=== PATIENT | female | born 1930 | race Caucasian/White ===

== ENCOUNTER 2016-07-03 09:06 | Emergency (ER) | payer MEDICARE, OTHER ==
[~2016-07-03] VITALS: Ht 147.3 cm; Wt 48.4 kg
[2016-07-03 09:25] VITALS: Ht 147.3 cm; Wt 48.4 kg
[2016-07-03] MEDS ORDERED: IPRATROPIUM (NEB) 0.5 MG/2.5 ML AMP NEB STA ×2 (10:03→11:36)
[2016-07-03] MEDS ORDERED: ALBUTEROL 0.5% (NEB) 2.5 MG/0.5 ML AMP NEB STA ×2 (10:03→11:36)
[2016-07-03] MEDS ORDERED: SOD CHLORIDE 0.9% 1,000 ML IV STA (10:03)
[2016-07-03] MEDS ORDERED: ALEN70TA30 PO (10:36)
--- NOTE | 2016-07-03 10:45 | ERD ---
ER Documentation Chief Complaint Date/Time DATE: 07/03/16 TIME: 10:35 Chief Complaint COUGH X 1 WEEK HPI This is a very pleasant 85-year-old female with a past medical history of hypertension that presents to the emergency department complaining of runny nose , sneezing, nonproductive cough and generalized myalgias for the past 7 days. She states the cough is worse at night. She denies any shortness of breath at rest or exertion. She has not taken any antibiotics. She states she has taken ilka-fdu-gcbllre antitussive medication with no improvement of her symptoms. She denies any nausea vomiting or diarrhea. She denies any chest pain or pressure that radiates to the neck arm back or jaw. She has had no recent sick contacts. She did not take any antipyretics prior to arrival. She denies any recent travel ROS All systems reviewed and are negative except as per history of present illness. Medications Home Meds Reported Medications Amlodipine Besylate* (Amlodipine Besylate*) 10 Mg Tablet, 10 MG PO DAILY, #30 TAB 07/03/16 Atorvastatin Calcium* (Atorvastatin Calcium*) 20 Mg Tablet, 20 MG PO QHS, #30 TAB 07/03/16 Alendronate Sodium* (Fosamax*) 70 Mg Tablet, 70 MG PO Q7D, #4 TAB 07/03/16 Allergies Allergies: Coded Allergies: No Known Allergy (Unverified , 07/03/16) Physical Exam Vitals Vital Signs Date Time Temp Pulse Resp B/P Pulse Ox O2 Delivery O2 Flow Rate FiO2 07/03/16 11:08 85 20 96 21 07/03/16 10:25 99.6 94 32 137/62 100 Room Air 07/03/16 09:25 98.5 104 18 124/58 95 Physical Exam Constitutional:Well-developed. Well-nourished. HEENT:Normocephalic. Atraumatic.Pupils were equal round reactive to light. Moist mucous membranes.No tonsillar exudates. Neck: No nuchal rigidity. No lymphadenopathy. No posterior cervical spine tenderness or step-offs. Respiratory: Not using accessory muscles of respiration.Lungs were clear to auscultation bilaterally. No rhonchi. No rales. Mild wheezing on end auscultation bilaterally Cardiovascular: Regular rate regular rhythm.No murmurs. No rubs were appreciated.S1, S2 normal. Distal pulses are palpable 2+ bilaterally. GI: Abdomen was soft. Nontender. Non Distended. No pulsatile abdominal masses or bruits. No rebound. No guarding. Bowel sounds were present and normal. Muscle skeletal: Full range of motion of both the upper and lower extremities bilaterally.Normal muscle tone.No assymetrical calf tenderness or swelling. Skin: No petechia, no purpura. No lesions on the palms or the soles of the feet. No maculopapular rash. NEURO: Patient was alert, awake, orientated x3.No facial droop. Gait observed and normal with no ataxia.Speech had regular rate and rhythm. No focal neurological deficits. Result Diagram: 07/03/16 1025 07/03/16 1025 Results 24 hrs Laboratory Tests Test 07/03/16 10:25 07/03/16 10:35 Alanine Aminotransferase (ALT/SGPT) 75IU/L Albumin 3.9g/dl Albumin/Globulin Ratio 0.79 Alkaline Phosphatase 106IU/L Anion Gap 19 Aspartate Amino Transf (AST/SGOT) 72IU/L B-Type Natriuretic Peptide 177PG/ML Basophils # 0.010^3/ul Basophils % 0.4% Blood Urea Nitrogen 9mg/dl Calcium Level 10.4mg/dl Carbon Dioxide Level 30mmol/L Chloride Level 101mmol/L Creatinine 0.97mg/dl Direct Bilirubin 0.00mg/dl Eosinophils # 0.310^3/ul Eosinophils % 2.7% Globulin 4.90g/dl Glucose Level 117mg/dl Hematocrit 34.3% Hemoglobin 11.2g/dl Indirect Bilirubin 0.3mg/dl Lymphocytes # 2.310^3/ul Lymphocytes % 21.0% Mean Corpuscular Hemoglobin 30.5pg Mean Corpuscular Hemoglobin Concent 32.7g/dl Mean Corpuscular Volume 93.5fl Mean Platelet Volume 9.5fl Monocytes # 0.710^3/ul Monocytes % 6.4% Neutrophils # 7.610^3/ul Neutrophils % 68.2% Nucleated Red Blood Cells # 0.010^3/ul Nucleated Red Blood Cells % 0.0/100WBC Platelet Count 83253^3/UL Potassium Level 3.6mmol/L Red Blood Count 3.6710^6/ul Red Cell Distribution Width 13.3% Sodium Level 146mmol/L Total Bilirubin 0.3mg/dl Total Protein 8.8g/dl Troponin I < 0.012ng/ml White Blood Count 11.110^3/ul Urine Bilirubin NEGATIVE Urine Clarity CLEAR Urine Color LT. YELLOW Urine Glucose NEGATIVE% Urine Hemoglobin NEGATIVE Urine Ketones NEGATIVE Urine Leukocyte Esterase NEGATIVE Urine Microscopic RBC 0-2/HPF Urine Microscopic WBC 0-2/HPF Urine Nitrite NEGATIVE Urine Specific [place] 1.015 Urine Total Protein 1+ Urine Urobilinogen 0.2 E.U./dL Urine pH 7.0 Current Medications Medications (Trade) Dose Ordered Sig/Kayla Route PRN Reason Start Time Stop Time Status Last Admin Dose Admin Sodium Chloride (NS) 1,000 ml @ 1,000 mls/hr Q1H STAT IV 07/03/16 10:03 07/03/16 11:02 DC 07/03/16 10:29 Albuterol (Proventil 0.5% (Neb)) 5 mg ONCE STAT NEB 07/03/16 10:03 07/03/16 10:06 DC 07/03/16 10:45 Ipratropium [place] (Atrovent 0.02% (Neb)) 0.5 mg ONCE STAT NEB 07/03/16 10:03 07/03/16 10:06 DC 07/03/16 10:45 Albuterol (Proventil 0.5% (Neb)) 5 mg ONCE STAT NEB 07/03/16 11:36 07/03/16 11:46 DC Ipratropium [place] (Atrovent 0.02% (Neb)) 0.5 mg ONCE STAT NEB 07/03/16 11:36 07/03/16 11:46 DC Methylprednisolone Sodium Succinate (Solu-Medrol) 125 mg ONCE STAT IV 07/03/16 11:36 07/03/16 11:46 DC Benzonatate (Tessalon) 100 mg ONCE ONCE PO 07/03/16 12:00 07/03/16 12:01 DC Procedures/MDM This patient presented to the emergency department complaining of flulike symptoms for the past 7 days. The patient was nontoxic in appearance did not show any physical exam findings suggestive of sepsis. IV access was established for mild clinical dehydration. She received a liter bolus of normal saline. The patient was given antitussive medication which included Tessalon Perles. She did have new onset wheezing and therefore was given a nebulizer treatment of albuterol Atrovent and afterwards reevaluation indicated there is no longer any wheezing on auscultation. She also received 125 mg of Solu-Medrol intravenously for suspected acute bronchitis. 12 Lead EKG tracing ordered and reviewed by myself showed: Normal sinus rhythm of 88 bpm and no arrhythmia. MD interval normal. QRS duration normal. No ST segment elevation No ST segment depression. No changes consistent with acute ischemia. I obtained a 1 view chest radiograph ordered and reviewed by myself and the radiologist which indicated the followin. No evidence of acute cardiopulmonary disease. 2. Pulmonary hyperinflation and chronic lung changes, correlate with COPD. 3. Atherosclerotic vascular disease. The patient had smoked tobacco for 10 years but stated she quit in 1979. Given that her symptoms could be a result of acute bronchitis with new onset emphysema she was given 125 mg of Solu-Medrol and again her wheezing had completely resolved after she received nebulizer treatments with bronchodilators. She was given a liter bolus of 0.9 normal saline. The patient was satting at 100% on room air. The patient was discharged home in fair condition. They were instructed to return to the emergency department at any time if there was any worsening of their condition. The patient stated they would follow up with their PCP in the next 24-48 hours to initiate a suitable medication regimen under the care of their PCP as well as to allow their PCP to monitor any drug reactions. The patient was discharged home with prescriptions after they gave informed consent to the new medication. They were also fully informed by myself on the adverse effects and adverse drug interactions in order to provide adequate safeguards to prevent possible adverse reactions to medications. Departure Diagnosis: Primary Impression: COPD (chronic obstructive pulmonary disease) with acute bronchitis Condition: ALEXANDER Tomlin Jul 03, 2016 10:45
[2016-07-03 10:50] LABS: ADD SCAN DIFF NO
[2016-07-03] MEDS ORDERED: AMLO-147 PO (10:53)
[2016-07-03] MEDS ORDERED: ATOR20TA38 PO (10:53)
--- NOTE | 2016-07-03 10:59 | RADRPT ---
PROCEDURE: Chest Radiograph. CLINICAL INDICATION: Asthma exacerbation. TECHNIQUE: Single frontal chest radiograph. COMPARISON: None available FINDINGS: Heart size is within normal limits. Atherosclerotic calcifications are present. The lungs are hype rinflated. There is a mild interstitial prominence which is nonspecific but likely related to chron ic lung changes. No infiltrate or effusion is seen. The bones are demineralized. IMPRESSION: 1. No evidence of acute cardiopulmonary disease. 2. Pulmonary hyperinflation and chronic lung changes, correlate with COPD. 3. Atherosclerotic vascular disease. RPTAT: KK .Kilo Alberto MD, MD Date Time Electronically viewed and signed by .Kilo Alberto MD, MD on 07/03/2016 10:58 .B/
[2016-07-03 11:01] LABS: ADD UMIC YES; URINE BILIRUBIN (Dip) NEGATIVE (NEGATIVE); URINE BLOOD (Dip) NEGATIVE (NEGATIVE); URINE COLOR LT. YELLOW (YELLOW); URINE GLUCOSE (Dip) NEGATIVE (NEGATIVE); URINE KETONES (Dip) NEGATIVE (NEGATIVE); URINE LEUKOCYTE ESTERASE (Dip) NEGATIVE (NEGATIVE); URINE NITRITE (Dip) NEGATIVE (NEGATIVE); URINE TOTAL PROTEIN (Dip) 1+ (NEGATIVE); URINE UROBILINOGEN (Dip) 0.2 E.U./dL (0.1-1.0)
[2016-07-03 11:02] LABS: ALBUMIN 3.9 g/dl (3.3-4.9); BASOPHILS % 0.4 % (0.0-2.0); CHLORIDE 101 mmol/L (97-110); EOSINOPHILS # 0.3 10^3/ul (0.0-0.5); EOSINOPHILS % 2.7 % (0.0-7.0); HEMATOCRIT 34.3 % (37.0-47.0); HEMOGLOBIN 11.2 g/dl (12.0-16.0); LYMPHOCYTES # 2.3 10^3/ul (0.8-2.9); MEAN CORPUSCULAR HEMOGLOBIN 30.5 pg (29.0-33.0); MEAN CORPUSCULAR HGB CONC 32.7 g/dl (32.0-37.0); MEAN CORPUSCULAR VOLUME 93.5 fl (82.0-101.0); MEAN PLATELET VOLUME 9.5 fl (7.4-10.4); MONOCYTE # 0.7 10^3/ul (0.3-0.9); MONOCYTES % 6.4 % (0.0-11.0); NEUTROPHIL # 7.6 10^3/ul (1.6-7.5); NEUTROPHILS % 68.2 % (39.0-77.0); PLATELET COUNT 370 10^3/UL (140-415); RED BLOOD COUNT 3.67 10^6/ul (4.20-5.40); RED CELL DISTRIBUTION WIDTH 13.3 % (11.5-14.5); WHITE BLOOD COUNT 11.1 10^3/ul (4.8-10.8)
[2016-07-03 11:03] LABS: POTASSIUM 3.6 mmol/L (3.5-5.1); SODIUM 146 mmol/L (135-144)
[2016-07-03 11:05] LABS: ALANINE AMINOTRANSFERASE 75 IU/L (13-69); ALBUMIN/GLOBULIN RATIO 0.79; ALKALINE PHOSPHATASE 106 IU/L (42-121); ANION GAP 19 (8-16); ASPARTATE AMINO TRANSFERASE 72 IU/L (15-46); BILIRUBIN,INDIRECT 0.3 mg/dl (0-1.1); BILIRUBIN,TOTAL 0.3 mg/dl (0.2-1.3); BLOOD UREA NITROGEN 9 mg/dl (7-20); CARBON DIOXIDE 30 mmol/L (21-31); CREATININE 0.97 mg/dl (0.44-1.00); GLUCOSE 117 mg/dl (70-220); TOTAL PROTEIN 8.8 g/dl (6.1-8.1)
[2016-07-03 11:06] LABS: CALCIUM 10.4 mg/dl (8.4-10.2)
[2016-07-03 11:09] LABS: URINE RBCS 0-2 /HPF (0)
[2016-07-03 11:13] LABS: B-TYPE NATRIURETIC PEPTIDE 177 PG/ML (0-450)
[2016-07-03 11:22] LABS: TROPONIN-I < 0.012 ng/ml (0.00-0.12)
[2016-07-03] MEDS ORDERED: METHYLPREDNISOLONE 125 MG INJ IV STA (11:36)
[2016-07-03] MEDS ORDERED: BENZONATATE 100 MG CAP PO ONE (12:00)
[2016-07-03] MEDS ORDERED: BENZ100C70 PO (12:27)
[2016-07-03] MEDS ORDERED: PRED50TA PO (12:27)
[2016-07-03] MEDS ORDERED: ALBU8.5H3 INH (12:27)
[2016-07-03] MEDS ORDERED: AZIT500T5 PO (12:27)
[2016-07-03 13:38] VITALS: BP 119/63; PULSE 97; RESP 27; TEMP 99.6
== END 2016-07-03 14:10 | disposition home or self-care (01) ==
LOC: E/R 09:06
DX: J44.0 Chronic obstructive pulmonary disease with (acute) lower respiratory infection (principal); I10 Essential (primary) hypertension; R40.2142 Coma scale, eyes open, spontaneous, at arrival to emergency department; R40.2252 Coma scale, best verbal response, oriented, at arrival to emergency department; R40.2362 Coma scale, best motor response, obeys commands, at arrival to emergency department; J45.901 Unspecified asthma with (acute) exacerbation; J20.9 Acute bronchitis, unspecified; Z87.891 Personal history of nicotine dependence
CPT/HCPCS: 36415; 71010; 80053; 81001; 83880; 84484; 85025; 87400; 93005; 94640; 94664; 96374; 99285; J2930; J7030; 81003

== ENCOUNTER 2017-11-22 15:29 | Emergency (ER) | END 2017-11-22 22:09 | disposition home or self-care (01) ==